=== PATIENT | male | born 1980 | race Caucasian/White ===

== ENCOUNTER 2023-09-01 20:22 | Emergency (ER) | payer OTHER, SELFPAY ==
[2023-09-01 20:34] VITALS: BP 125/78; PULSE 92; RESP 17; TEMP 36.9; O2SAT 97; BMI 25.7
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
[2023-09-01] MEDS: ondansetron 2 mg/ML SDV 2 mL 4 MG IM (21:05)
[2023-09-01 21:06] VITALS: RESP 16; O2SAT 95
[2023-09-01] MEDS: morphine 4 mg/mL SDV 1 mL IM (21:06)
[2023-09-01 21:08] VITALS: PULSE 86; RESP 18; O2SAT 95
[2023-09-01] MEDS: HYDROcodone-acetaminophen 7.5-325 mg Tablet 2 TAB PO (21:28)
[2023-09-01 21:41] VITALS: PULSE 109; RESP 20; O2SAT 99
--- NOTE | 2023-09-04 08:01 | DCPLANNER ---
Message sent to ortho - Dr. Rivear for follow up on fx lumbar vertebra-
== END 2023-09-01 21:39 | disposition home or self-care (01) ==
PROVIDERS: Emergency Provider Emergency Medicine
DX: S32.048A Other fracture of fourth lumbar vertebra, initial encounter for closed fracture (principal); T21.14XA Burn of first degree of lower back, initial encounter; S70.01XA Contusion of right hip, initial encounter; F17.210 Nicotine dependence, cigarettes, uncomplicated; V29.99XA Rider (driver) (passenger) of other motorcycle injured in unspecified traffic accident, initial encounter
CPT/HCPCS: 72192; 73030; 96372; 99284; J2270; J2405

== ENCOUNTER 2023-12-13 20:05 | Emergency (ER) | payer OTHER, SELFPAY ==
[2023-12-13 20:13] VITALS: BP 145/82; PULSE 61; RESP 18; TEMP 36.8; O2SAT 97; BMI 27.1
[2023-12-13 21:35] LABS: Basophils # 0.1 10^3/uL (0.0-0.1); Basophils % 0.8 %; Eosinophils # 0.2 10^3/uL (0.0-0.8); Eosinophils % 1.9 %; Hematocrit 45.7 % (37-53); Lymphocytes # 2.3 10^3/uL (0.8-4.8); Lymphocytes % 21.3 %; Mean Corpuscular Hemoglobin 31.4 pg (27-33); Mean Platelet Volume 8.7 fL (7.4-10.4); Monocytes # 0.8 10^3/uL (0.2-0.9); Neutrophils # 7.44 10^3/uL (1.8-7.7); Neutrophils % 68.6 %; Nucleated Red Blood Cells % 0 %; Platelet Count 303 10^3/cmm (157-399); Red Blood Count 4.81 10^6/uL (3.85-5.65); Red Cell Distribution Width 12.3 % (12.1-15.1); White Blood Count 10.85 10^3/uL (3.29-11.43)
[2023-12-13 21:56] LABS: Acetaminophen 6.6 ug/mL (10-30); Alanine Aminotransferase 18 U/L (0-41); Albumin Level 4.4 g/dL (3.5-5.2); Alkaline Phosphatase 116 U/L (40-130); Anion Gap 13.2 (5-19); Aspartate Amino Transferase 16 U/L (0-40); Blood Urea Nitrogen 11 mg/dL (6-20); Calcium 9.3 mg/dL (8.5-10.5); Carbon Dioxide 28 mmol/L (22-29); Chloride 101 mmol/L (98-107); Creatinine Clr Calc Pharmacy 112.7642; Globulin 3.3 g/dL (1.3-4.6); Glomerular Filtration Rate 81.9 mL/min (90-130); Glucose 102 mg/dL (65-115); Osmolality Calculated 286 mOsm/kg (285-295); Potassium 4.2 mmol/L (3.5-5.1); Sodium 138 mmol/L (136-145); Total Bilirubin 0.2 mg/dL (0.15-1.2); Total Protein 7.7 g/dL (6.6-8.7)
--- NOTE | 2023-12-13 22:19 | ED_ITS ---
HPI - Dental/Oral 2 General: Chief complaint: Dental/Oral Stated complaint: tooth pain Time Seen by Provider: 12/13/23 22:04 History of Present Illness: 43-year-old male patient comes in for de ntal pain. On exam patient appears nontoxic. Respirations are even. Lungs are clear to auscultation. Skin is warm and dry. Vital signs are normal. Patient instructed to nurse that he had been taken large doses of Tylenol. Patient denies any chronic medical problems. Related Data Previous Rx's Medication Instructions Recorded naproxen 500 mg tablet (Naprosyn) 500 mg PO BID PRN pain #20 tabs 09/01/23 amoxicillin 875 mg-potassium 1 tab PO BID #20 tabs 12/13/23 clavulanate 125 mg tablet hydrocodone 5 mg-acetaminophen 325 1 tab PO Q6H PRN pain #7 tabs 12/13/23 mg tablet Allergies Allergy/AdvReac Type Severity Reaction Status Date / Time No Known Allergies Allergy Verified 09/01/23 20:38 Review of Systems 2 General: Reports: 10 or more systems reviewed and unremarkable except in HPI and below PFSH ED 2 PFSH: Social History Smoking and tobacco/nicotine status: current every day tobacco/nicotine user Physical Exam 2 Const: COMMON NORMALS: alert HENMT: COMMON NORMALS: normocephalic HEAD & SCALP: normocephalic FACE & SINUS: edema (Left lower jaw) MOUTH: other (Multiple tooth decay, gingival redness swelling left lower) Neck/C-Spine: COMMON NORMALS: full ROM Resp: COMMON NORMALS: normal respiratory effort and clear to auscultation bilaterally AUSCULTATION: clear to auscultation bilaterally Cardio: COMMON NORMALS: regular rate RATE: regular rate Back/Pelvis: COMMON NORMALS: thoracic and lumbar spine normal to inspection Extremity: COMMON NORMALS: full ROM Neuro: SENSORIUM/ORIENTATION: Yes alert Skin: COMMON NORMALS: turgor normal GENERAL SKIN EXAM: turgor normal Course 2 Vital Signs: Vital signs: Vital Signs Temperature 98.2 F 12/13/23 20:13 Pulse Rate 61 12/13/23 20:13 Respiratory Rate 18 12/13/23 20:13 Blood Pressure 145/82 12/13/23 20:13 Pulse Oximetry 97 12/13/23 20:13 Oxygen Delivery Me thod Room Air 12/13/23 20:13 MDM - Dental/Oral Medical Decision Making 43-year-old male patient comes in with left lower jaw pain and swelling. On exam patient appears nontoxic. Patient does have some mild facial swelling. Patient is very poor dentition with multiple decay to the left lower jaw. Patient has significant redness and swelling to the gingiva. Differential diagnosis includes not limited to floor mouth cellulitis, dental abscess, dental caries, dental pain. Posterior pharynx is normal. No signs of retropharyngeal abscess, we patient was likely just has a dental abscess secondary to dental decay. Will treat with antibiotics and medication for pain. Patient strongly recommended to follow-up with dentist for removal of carious teeth. Lab Data 12/13/23 21:17 12/13/23 21:17 Laboratory Results WBC 10.85 10^3/uL (3.29-11.43) 12/13/23: RBC 4.81 10^6/uL (3.85-5.65) 12/13/23 21:17 Hgb 15.10 g/dL (11.27-16.99) 12/13/23 21:17 Hct 45.7 % (37-53) 12/13/23 21:17 MCV 95.0 fl (82-101) 12/13/23 21:17 MCH 31.4 pg (27-33) 12/13/23 21: MCHC 33.0 g/dL (30-55) 12/13/23: RDW 12.3 % (12.1-15.1) 12/13/23 21:17 Plt Count 303 10^3/cmm (157-399) 12/13/23 21:17 MPV 8.7 fL (7.4-10.4) 12/13/23 21: Neut % (Auto) 68.6 % 12/13/23 21: Lymph % (Auto) 21.3 % 12/13/23 21:17 [place] % (Auto) 7.0 % 12/13/23 21:17 Eos % (Auto) 1.9 % 12/13/23: Baso % (Auto) 0.8 % 12/13/23:17 Neut # (Auto) 7.44 10^3/uL (1.8-7.7) 12/13/23 21:17 Lymph # (Auto) 2.3 10^3/uL (0.8-4.8) 12/13/23 21:17 [place] # (Auto) 0.8 10^3/uL (0.2-0.9) 12/13/23 21:17 Eos # (Auto) 0.2 10^3/uL (0.0-0.8) 12/13/23 21:17 Baso # (Auto) 0.1 10^3/uL (0.0-0.1) 12/13/23 21:17 Nucleated RBC % (auto) 0 % 12/13/23 21:17 Nucleated RBCs # 0.0 /100WBC 12/13/23 21:17 Sodium 138 mmol/L (136-145) 12/13/23 21:17 Potassium 4.2 mmol/L (3.5-5.1) 12/13/23 21:17 Chloride 101 mmol/L (98-107) 12/13/23 21:17 Carbon Dioxide 28 mmol/L (22-29) 12/13/23 21:17 Anion Gap 13.2 (5-19) 12/13/23 21:17 BUN 11 mg/dL (6-20) 12/13/23 21:17 Creatinine 1.0 mg/dL (0.7-1.2) 12/13/23 21:17 GFR Calculation 81.9 mL/min (90-130) L 12/13/23 21:17 Glucose 102 mg/dL (65-115) 12/13/23 21:17 Calculated Osmolality 286 mOsm/kg (285-295) 12/13/23 21:17 Calcium 9.3 mg/dL (8.5-10.5) 12/13/23 21:17 Total Bilirubin 0.2 mg/dL (0.15-1.2) 12/13/23 21:17 AST 16 U/L (0-40) 12/13/23 21:17 ALT 18 U/L (0-41) 12/13/23 21:17 Alkaline Phosphatase 116 U/L (40-130) 12/13/23 21:17 Total Protein 7.7 g/dL (6.6-8.7) 12/13/23 21:17 Albumin 4.4 g/dL (3.5-5.2) 12/13/23 21:17 Globulin 3.3 g/dL (1.3-4.6) 12/13/23 21:17 Acetaminophen 6.6 ug/mL (10-30) L 12/13/23 21:17 No radiology studies performed this visit Discharge Plan Discharge Patient Disposition: Home Clinical Impression: Toothache, Dental abscess Condition: Stable Prescriptions: New amoxicillin-pot clavulanate 875-125 mg tablet 1 tab PO BID Qty: 20 0RF Continued hydrocodone-acetaminophen 5-325 mg tablet 1 tab PO Q6H PRN (Reason: pain) Qty: 7 0RF No Action Naprosyn 500 mg tablet 500 mg PO BID PRN (Reason: pain) Qty: 20 0RF Discharge Orders: Discharge ED (Routine); Ordered 12/13/23 Ordered By: Guillermo Acosta Discharge Diet: Usual diet Discharge Activity: Increase activity as tolerated Patient Instructions: Opioid Safety, Pain Management Activity Restrictions/Additional Instructions: Follow-up with dentist for definitive care. Coding Level of Care Code ED Journalism Professor for Marissa Pablo
[2023-12-13] MEDS: amoxicillin-clav 875-125 mg Tablet 1 TAB PO (22:55)
[2023-12-13] MEDS: HYDROcodone-acetaminophen 5-325 mg Tablet 1 TAB PO (22:55)
[2023-12-13 22:57] VITALS: BP 140/82; PULSE 69; RESP 18; O2SAT 98
== END 2023-12-13 22:58 | disposition home or self-care (01) ==
PROVIDERS: Emergency Provider Nurse Practitioner Family
DX: K08.89 Other specified disorders of teeth and supporting structures (principal); K04.7 Periapical abscess without sinus; Z72.0 Tobacco use
CPT/HCPCS: 36415; 80053; 80307; 85025; 99283